=== PATIENT | female | born 1980 | race Caucasian/White ===

== ENCOUNTER 2017-12-31 13:56 | Emergency (ER) | payer OTHER ==
[2017-12-31] MEDS ORDERED: LORazepam 0.5 MG Tab PO ONE ×2 (13:57→16:06)
[2017-12-31 15:14] LABS: CHLORIDE,CL 102 mmol/L (101-111); SODIUM,NA 138 mmol/L (135-145)
[2017-12-31 15:15] LABS: ANION GAP 12.2
--- NOTE | 2017-12-31 16:10 | EDM.PDOC ---
Scribed by Margarette Stein 12/31/17 1609 for Everton Santacruz PA ED HPI GENERAL MEDICAL PROBLEM - General Chief Complaint: Chest Pain Stated Complaint: CHEST PAIN [phone] Time Seen by Provider: 12/31/17 15:01 Source of Information: Reports: Patient, RN, RN Notes Reviewed History Limitations: Reports: No Limitations - History of Present Illness INITIAL COMMENTS - FREE TEXT/NARRATIVE: Patient presents with intermittent chest "congestion"for the past 1 to 2 weeks. 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 The patient started her Sertraline about 1-1/2 week ago. The patient saw Silva Goins last week and told to take walks and keep taking Sertraline. Onset: Gradual Duration: Getting Worse Location: Reports: Chest Quality: Reports: Ache Severity: Moderate Improves with: Reports: None Worsens with: Reports: None Associated Symptoms: Reports: No Other Symptoms Middle Chest Pain Score (Numeric/FACES): 6 - Related Data Allergies Allergy/AdvReac Type Severity Reaction Status Date / Time azithromycin Allergy Cannot Verified 12/31/17 14:38 Remember bermuda grass Allergy Cannot Uncoded 10/16/16 14:35 Remember penicillin mold Allergy Cannot Uncoded 10/16/16 14:35 Remember Home Meds: Home Meds Drospirenone/Ethinyl Estradiol [Kaley 28] 1 tab PO DAILY 09/28/15 [History] FLUoxetine [PROzac] 20 mg PO DAILY 09/28/15 [History] Past Medical History HEENT History: Reports: None Cardiovascular History: Reports: None Respiratory History: Reports: None Gastrointestinal History: Reports: Irritable Bowel Syndrome Genitourinary History: Reports: None 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 Musculoskeletal History: Reports: Other (See Below) 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 Neurological History: Reports: None Psychiatric History: Reports: Anxiety, Depression Endocrine/Metabolic History: Reports: None Hematologic History: Reports: None Immunologic History: Reports: None Oncologic (Cancer) History: Reports: Cervix Dermatologic History: Reports: None - Infectious Disease History Infectious Disease History: Reports: Chicken Pox, Measles - Past Surgical History Head Surgeries/Procedures: Reports: None Female Surgical History: Reports: Cervical Conization Social & Family History - Family History Family Medical History: Noncontributory - Tobacco Use Smoking Status *Q: Former Smoker Years of Tobacco use: 6 Packs/Tins Daily: 0.5 Used Tobacco, but Quit: Yes Month/Year Tobacco Last Used: 2016 Second Hand Smoke Exposure: No - Caffeine Use Caffeine Use: Reports: Coffee - Alcohol Use Days Per Week of Alcohol Use: 2 Number of Drinks Per Day: 6 Total Drinks Per Week: 12 - Recreational Drug Use Recreational Drug Use: No - Living Situation & Occupation Living situation: Reports: Single, Alone Occupation: Employed ED ROS GENERAL - Review of Systems Review Of Systems: ROS reveals no pertinent complaints other than HPI. ED EXAM, GENERAL - Physical Exam Exam: See Below Exam Limited By: No Limitations General Appearance: Alert, WD/WN, No Apparent Distress Eye Exam: Bilateral Eye: Normal Inspection Nose: Normal Inspection, Normal Mucosa, No Blood Throat/Mouth: Normal Inspection, Normal Lips, Normal Teeth, Normal Gums, Normal Oropharynx, Normal Voice, No Airway Compromise Head: Atraumatic, Normocephalic Neck: Normal Inspection, Supple, Non-Tender, Full Range of Motion Respiratory/Chest: No Respiratory Distress, Lungs Clear, Normal Breath Sounds, No Accessory Muscle Use, Chest Non-Tender Cardiovascular: Normal Peripheral Pulses, Regular Rate, Rhythm, No Edema, No Gallop, No JVD, No Murmur, No Rub GI/Abdominal: Normal Bowel Sounds, Soft, Non-Tender, No Organomegaly, No Distention, No Abnormal Bruit, No Mass (Female) Exam: Deferred Rectal (Female) Exam: Deferred Back Exam: Normal Inspection, Full Range of Motion, NT Extremities: Normal Inspection, Normal Range of Motion, Non-Tender, Normal Capillary Refill, No Pedal Edema Neurological: Alert, Oriented, CN II-XII Intact, Normal Cognition, Normal Gait, Normal Reflexes, No Motor/Sensory Deficits Psychiatric: Anxious Skin Exam: Warm, Dry, Intact, Normal Color, No Rash Lymphatic: No Adenopathy Course - Vital Signs Last Recorded V/S: Last Vital Signs Temp 36.6 C 12/31/17 16:20 Pulse 67 12/31/17 18:24 Resp 18 12/31/17 18:24 BP 99/55 L 12/31/17 18:24 Pulse Ox 98 12/31/17 18:24 - Orders/Labs/Meds Orders: Active Orders 24 hr Category Date Time Status EKG Documentation Completion [RC] URGENT Care 12/31/17 14:19 Active DRUG SCREEN URINE BIORAD [URCHEM] Stat Lab 12/31/17 14:20 Ordered HCG QUALITATIVE,URINE [URCHEM] Stat Lab 12/31/17 14:20 Ordered UA W/MICROSCOPIC [URIN] Stat Lab 12/31/17 14:20 Ordered Labs: Laboratory Tests 12/31/17 12/31/17 12/31/17 Range/Units 14:20 14:20 14:20 WBC (5.0-10.0) 10^3/uL RBC (4.2-5.4) 10^6/uL Hgb (12.0-16.0) g/dL Hct (37.0-47.0) % MCV (80-100) fL MCH (27.0-34.0) pg MCHC (33.0-35.0) g/dL Plt Count (150-450) 10^3/uL Neut % (Auto) (42.2-75.2) % Lymph % (Auto) (20.5-50.1) % Hodgeman % (Auto) (2-8) % Eos % (Auto) (1.0-3.0) % Baso % (Auto) (0.0-1.0) % Sodium (135-145) mmol/L Potassium (3.6-5.0) mmol/L Chloride (101-111) mmol/L Carbon Dioxide (21.0-31.0) mmol/L Anion Gap BUN (7-18) mg/dL Creatinine (0.6-1.3) mg/dL Est Cr Clr Drug Dosing Estimated GFR (MDRD) BUN/Creatinine Ratio Glucose (74-105) mg/dL Calcium (8.4-10.2) mg/dl Total Bilirubin (0.2-1.0) mg/dL AST (10-42) IU/L ALT (10-60) IU/L Alkaline Phosphatase (42-121) IU/L Troponin I (0.00-0.02) ng/ml Total Protein (6.7-8.2) g/dl Albumin (3.2-5.5) g/dl Globulin Albumin/Globulin Ratio Urine Color Yellow (YELLOW) Urine Appearance Clear (CLEAR) Urine pH 6.0 (5.0-9.0) Ur Specific Mancos 1.015 (1.005-1.030) Urine Protein Negative (NEGATIVE) Urine Glucose (UA) Negative (NEGATIVE) Urine Ketones Negative (NEGATIVE) Urine Occult Blood Small H (NEGATIVE) Urine Nitrite Negative (NEGATIVE) Urine Bilirubin Negative (NEGATIVE) Urine Urobilinogen 0.2 (0.2-1.0) mg/dL Ur Leukocyte Esterase Negative (NEGATIVE) Urine RBC 0-5 /HPF Urine WBC 0-5 (0-5/HPF) /HPF Ur Epithelial Cells Rare /HPF Urine Bacteria Few (0-FEW/HPF) /HPF Urine HCG, Qual Negative Urine Opiates Screen Negative (NEGATIVE) Ur Oxycodone Screen Negative (NEGATIVE) Urine Methadone Screen Negative (NEGATIVE) Ur Barbiturates Screen Negative (NEGATIVE) U Tricyclic Antidepress Negative (NEGATIVE) Ur Phencyclidine Scrn Negative (NEGATIVE) Ur Amphetamine Screen Negative (NEGATIVE) U Methamphetamines Scrn Negative (NEGATIVE) Urine MDMA Screen Negative (NEGATIVE) U Benzodiazepines Scrn Negative (NEGATIVE) Urine Cocaine Screen Negative (NEGATIVE) U Marijuana (THC) Screen Negative (NEGATIVE) 12/31/17 12/31/17 12/31/17 Range/Units 14:30 14:30 18:02 WBC 6.8 (5.0-10.0) 10^3/uL RBC 4.11 L (4.2-5.4) 10^6/uL Hgb 12.7 (12.0-16.0) g/dL Hct 37.7 (37.0-47.0) % MCV 91.7 (80-100) fL MCH 30.9 (27.0-34.0) pg MCHC 33.7 (33.0-35.0) g/dL Plt Count 233 (150-450) 10^3/uL Neut % (Auto) 62.2 (42.2-75.2) % Lymph % (Auto) 29.4 (20.5-50.1) % Hodgeman % (Auto) 7.6 (2-8) % Eos % (Auto) 0.7 L (1.0-3.0) % Baso % (Auto) 0.1 (0.0-1.0) % Sodium 138 (135-145) mmol/L Potassium 3.2 L (3.6-5.0) mmol/L Chloride 102 (101-111) mmol/L Carbon Dioxide 27.0 (21.0-31.0) mmol/L Anion Gap 12.2 BUN 10 (7-18) mg/dL Creatinine 0.8 (0.6-1.3) mg/dL Est Cr Clr Drug Dosing TNP Estimated GFR (MDRD) > 60 BUN/Creatinine Ratio 12.50 Glucose 99 (74-105) mg/dL Calcium 9.7 (8.4-10.2) mg/dl Total Bilirubin 0.4 (0.2-1.0) mg/dL AST 27 (10-42) IU/L ALT 20 (10-60) IU/L Alkaline Phosphatase 44 (42-121) IU/L Troponin I < 0.02 < 0.02 (0.00-0.02) ng/ml Total Protein 7.3 (6.7-8.2) g/dl Albumin 4.0 (3.2-5.5) g/dl Globulin 3.3 Albumin/Globulin Ratio 1.21 Urine Color (YELLOW) Urine Appearance (CLEAR) Urine pH (5.0-9.0) Ur Specific Mancos (1.005-1.030) Urine Protein (NEGATIVE) Urine Glucose (UA) (NEGATIVE) Urine Ketones (NEGATIVE) Urine Occult Blood (NEGATIVE) Urine Nitrite (NEGATIVE) Urine Bilirubin (NEGATIVE) Urine Urobilinogen (0.2-1.0) mg/dL Ur Leukocyte Esterase (NEGATIVE) Urine RBC /HPF Urine WBC (0-5/HPF) /HPF Ur Epithelial Cells /HPF Urine Bacteria (0-FEW/HPF) /HPF Urine HCG, Qual Urine Opiates Screen (NEGATIVE) Ur Oxycodone Screen (NEGATIVE) Urine Methadone Screen (NEGATIVE) Ur Barbiturates Screen (NEGATIVE) U Tricyclic Antidepress (NEGATIVE) Ur Phencyclidine Scrn (NEGATIVE) Ur Amphetamine Screen (NEGATIVE) U Methamphetamines Scrn (NEGATIVE) Urine MDMA Screen (NEGATIVE) U Benzodiazepines Scrn (NEGATIVE) Urine Cocaine Screen (NEGATIVE) U Marijuana (THC) Screen (NEGATIVE) Meds: Medications Discontinued Medications Generic Name Dose Route Start Last Admin Trade Name Freq PRN Reason Stop Dose Admin Acetaminophen 650 mg 12/31/17 17:08 12/31/17 17:14 Tylenol PO 12/31/17 17:09 650 mg NOW ONE Administration Lorazepam 0.5 mg 12/31/17 16:06 12/31/17 16:12 Ativan PO 12/31/17 16:07 0.5 mg ONETIME ONE Administration - Re-Assessments/Exams Free Text/Narrative Re-Assessment/Exam: 12/31/17 16:08 The patient was advised of the examination, lab, EKG and x-ray results. The patient was kept on extended ED stay for a repeat troponin level at 1800. Ativan was given for anxiety prior to going on extended. Free Text/Narrative Re-Assessment/Exam: 12/31/17 19:02 Discussed the second lab results with the patient. The patient reports that she is feeling good at this time (no chest tightness or pain). Departure - Departure Time of Disposition: 19:03 Disposition: Home, Self-Care 01 Condition: Fair Clinical Impression: Anxiety, Nonspecific chest pain Instructions: Nonspecific Chest Pain, [id number], Generalized Anxiety Disorder, Adult Forms: ED Department Discharge Care Plan Goals: The patient was advised of the examination, lab, EKG and x-ray results during the visit. The patient was given an oral dose of Ativan while in the ED. The patient was discharged with Ativan (0.5 mg) #2 to take 1 by mouth every 6 hours as needed. The patient was also given a script for Ativan (0.5 mg) #10 to take 1 by mouth every 6 hours as needed. The patient was encouraged to follow-up with her primary care facility for continued evaluation and further management. If the patient has any additional symptoms, the patient should either return to the emergency department or visit her primary care facility. - My Orders Last 24 Hours: My Active Orders 12/31/17 14:19 EKG Documentation Completion [RC] URGENT 12/31/17 14:20 DRUG SCREEN URINE BIORAD [URCHEM] Stat HCG QUALITATIVE,URINE [URCHEM] Stat UA W/MICROSCOPIC [URIN] Stat - Assessment/Plan Last 24 Hours: My Active Orders 12/31/17 14:19 EKG Documentation Completion [RC] URGENT 12/31/17 14:20 DRUG SCREEN URINE BIORAD [URCHEM] Stat HCG QUALITATIVE,URINE [URCHEM] Stat UA W/MICROSCOPIC [URIN] Stat I have read and agree with the documentation that has been completed regarding this visit. By signing this record, I attest that the documentation was completed in my physical presence and is an accurate record of the encounter.
[2017-12-31] MEDS ORDERED: Acetaminophen 325 MG Tab PO ONE (17:08)
[2017-12-31 19:03] VITALS: BP 107/64
[2017-12-31] MEDS ORDERED: LORazepam 0.5 MG Tab ONE (19:04)
--- NOTE | 2018-02-02 09:29 | EKG ---
12/31/2017 - TOMAS IVY - EKG is sinus rhythm with a rate of 81. Normal WA interval. Normal axis. There are nonspecific ST-T wave changes in the inferolateral leads. EKG otherwise within normal limits. There are no signs of acute myocardial injury. [facility] /[id number]
== END 2017-12-31 19:13 | disposition home or self-care (01) ==
LOC: DL.ED 13:56
DX: R07.9 Chest pain, unspecified (principal); F41.9 Anxiety disorder, unspecified; Z79.899 Other long term (current) drug therapy; Z87.891 Personal history of nicotine dependence; Z88.1 Allergy status to other antibiotic agents; Z88.0 Allergy status to penicillin; Z91.09 Other allergy status, other than to drugs and biological substances
CPT/HCPCS: 36415; 71046; 80053; 80305; 81001; 81025; 84484; 85025; 93005; 93010; 99285; A9270

== ENCOUNTER 2018-01-12 12:10 | Emergency (ER) | payer OTHER ==
[2018-01-12 12:18] VITALS: BP 138/93
--- NOTE | 2018-01-12 12:21 | EDM.PDOC ---
ED HPI GENERAL MEDICAL PROBLEM - General Chief Complaint: Skin Complaint Stated Complaint: CUT FINGER [phone] Time Seen by Provider: 01/12/18 12:21 Source of Information: Reports: Patient, RN, RN Notes Reviewed History Limitations: Reports: No Limitations - History of Present Illness INITIAL COMMENTS - FREE TEXT/NARRATIVE: Pt presents to the ER with c/o pain and cut to right ring finger. Pt states she was closing a large, heavy door when she got her finger caught in the door. Pt states she believes she pulled on her hand to free her finger. Pt states she is up to date on her vaccinations as she is a [employer] employee. Pt rates the pain a 05/28. Onset: Today, Sudden Right 4-Ring finger Pain Score (Numeric/FACES): 6 - Related Data Allergies Allergy/AdvReac Type Severity Reaction Status Date / Time azithromycin Allergy Cannot Verified 01/12/18 12:21 Remember bermuda grass Allergy Cannot Uncoded 01/12/18 12:21 Remember penicillin mold Allergy Cannot Uncoded 01/12/18 12:21 Remember Home Meds: Home Meds FLUoxetine [PROzac] 20 mg PO DAILY 09/28/15 [History] Past Medical History HEENT History: Reports: None Cardiovascular History: Reports: None Respiratory History: Reports: None Gastrointestinal History: Reports: Irritable Bowel Syndrome Genitourinary History: Reports: None 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 Musculoskeletal History: Reports: Other (See Below) 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 Neurological History: Reports: None Psychiatric History: Reports: Anxiety, Depression Endocrine/Metabolic History: Reports: None Hematologic History: Reports: None Immunologic History: Reports: None Oncologic (Cancer) History: Reports: Cervix Dermatologic History: Reports: None - Infectious Disease History Infectious Disease History: Reports: Chicken Pox, Measles - Past Surgical History Head Surgeries/Procedures: Reports: None Female Surgical History: Reports: Cervical Conization Social & Family History - Family History Family Medical History: Noncontributory - Tobacco Use Smoking Status *Q: Former Smoker Years of Tobacco use: 6 Packs/Tins Daily: 0.5 Used Tobacco, but Quit: Yes Month/Year Tobacco Last Used: 2016 Second Hand Smoke Exposure: No - Caffeine Use Caffeine Use: Reports: Coffee - Alcohol Use Days Per Week of Alcohol Use: 2 Number of Drinks Per Day: 6 Total Drinks Per Week: 12 - Recreational Drug Use Recreational Drug Use: No - Living Situation & Occupation Living situation: Reports: Single, Alone Occupation: Employed ED ROS GENERAL - Review of Systems Review Of Systems: ROS reveals no pertinent complaints other than HPI. ED EXAM, SKIN/RASH Exam: See Below Exam Limited By: No Limitations General Appearance: Alert, WD/WN, Moderate Distress Eye Exam: Bilateral Eye: EOMI, Normal Inspection Ears: Normal External Exam, Hearing Grossly Normal Nose: Normal Inspection Throat/Mouth: Normal Inspection, Normal Voice, No Airway Compromise Head: Atraumatic, Normocephalic Neck: Normal Inspection Respiratory/Chest: No Respiratory Distress, Lungs Clear, Normal Breath Sounds Cardiovascular: Normal Peripheral Pulses, Regular Rate, Rhythm Peripheral Pulses: 2+: Radial (L), Radial (R) GI/Abdominal: Normal Bowel Sounds, Soft, Non-Tender (Female) Exam: Deferred Rectal (Female) Exam: Deferred Back Exam: Normal Inspection, Full Range of Motion Extremities: Normal Inspection, Normal Range of Motion, Non-Tender, No Pedal Edema, Normal Capillary Refill, Other (right 4th finger lacerated laterally across the nail and through the nailbed. Tip of finger is holding on by minimal tissue. ) Neurological: Alert, Oriented, CN II-XII Intact, Normal Cognition, Normal Gait, Normal Reflexes, No Motor/Sensory Deficits Psychiatric: Normal Affect, Normal Mood Skin: Warm, Dry Location, Skin: Upper Extremity, Right Lymphatic: No Adenopathy ED SKIN PROCEDURES - Laceration/Wound Repair Right Distal Finger Lac/Wound length In cm: 2 Appearance: Muscle, Linear Distal NVT: Other (severed approximately 70% of the way through the finger) Anesthetic Type: Local Local Anesthesia - Lidocaine (Xylocaine): 1% Plain Local Anesthetic Volume: Other (7cc) Skin Prep: Chlorhexidine (Hibiciens) Exploration/Debridement/Repair: Wound Explored, In a Bloodless Field, Minimal Debridement, No Foreign Material Found, Wound Margins Revised Closed with: Sutures Suture Size: 4-0 # of Sutures: 4 Suture Type: Nylon, Interrupted Drain Placement: No Sterile Dressing Applied: Provider Tetanus Status Addressed: Yes Complications: No Progress/Comments: After suturing the lateral part of the finger, the fingernail was approximated and glued. Wrapped with telfa and stabilized with a splint Course - Vital Signs Last Recorded V/S: Last Vital Signs Temp 97.8 F 04/27/18 12:16 Pulse 94 01/12/18 12:16 Resp 15 01/12/18 12:16 BP 138/93 H 01/12/18 12:16 Pulse Ox 100 01/12/18 12:16 - Orders/Labs/Meds Meds: Medications Discontinued Medications Generic Name Dose Route Start Last Admin Trade Name Malena PRN Reason Stop Dose Admin Lidocaine HCl 30 ml 01/12/18 13:18 01/12/18 13:23 Xylocaine-Mpf 1% INJECT 01/12/18 13:19 30 ml ONETIME ONE Administration Morphine Sulfate 2 mg 01/12/18 12:56 01/12/18 13:02 Morphine IM 01/12/18 12:57 2 mg ONETIME ONE Administration - Radiology Interpretation Free Text/Narrative:: Nondisplaced comminuted fracture terminal tuft and distal end of the distal phalanx right ring finger. Surrounding soft tissue swelling but reasonable apposition and near anatomic alignment of the subungual bony fragments. No foreign bodies or inflammatory periostitis. No other fracture or dislocation approximately in the adjacent middle/small fingers are intact. Departure - Departure Time of Disposition: 14:01 Disposition: Home, Self-Care 01 Condition: Fair Clinical Impression: Avulsion fracture Avulsion, finger tip Qualifiers: Encounter type: initial encounter Qualified Code(s): S61.209A - Unspecified open wound of unspecified finger without damage to nail, initial encounter - Discharge Information Instructions: Laceration Care, Adult, [id number], Stitches, Chuck, or Adhesive Wound Closure, [id number] Forms: ED Department Discharge Additional Instructions: Follow up with primary care for referral to ortho. Keep area clean and dry Get Non-adhesive dressing gauze for over the finger for when changing the dressing
--- NOTE | 2018-01-12 12:49 | CR ---
Clinical history: 37-year-old female injury right index (fourth) finger. Interpretation: Abnormal. Nondisplaced comminuted fracture terminal tuft and distal end of the distal phalanx right ring finger . Surrounding soft tissue swelling but reasonable apposition and near anatomic alignment of the subungu al bony fragments. No foreign bodies or inflammatory periostitis. No other fracture or dislocation approximately in the adjacent middle/small fingers are intact.
[2018-01-12] MEDS ORDERED: Morphine 2 MG/ML Syringe IM ONE (12:56)
[2018-01-12] MEDS ORDERED: Lidocaine 1% 30 ML SDV INJECT ONE (13:18)
== END 2018-01-12 14:08 | disposition home or self-care (01) ==
LOC: DL.ED 12:10
DX: S62.634A Displaced fracture of distal phalanx of right ring finger, initial encounter for closed fracture (principal); S61.214A Laceration without foreign body of right ring finger without damage to nail, initial encounter; Z88.1 Allergy status to other antibiotic agents; Z91.09 Other allergy status, other than to drugs and biological substances; Z88.0 Allergy status to penicillin; Z87.891 Personal history of nicotine dependence; W23.0XXA Caught, crushed, jammed, or pinched between moving objects, initial encounter
CPT/HCPCS: 12001; 73140; 96372; 99283; J2270; 12031

== ENCOUNTER 2018-12-27 05:35 | Inpatient (IN) | payer OTHER ==
[2018-12-27] MEDS ORDERED: hydrOXYzine HCl 25 MG Tab PO PRN (06:15)
[2018-12-27] MEDS ORDERED: Lactated Ringers 1,000 ML IV ONE (06:15)
[2018-12-27] MEDS ORDERED: fentaNYL 100 MCG/2 ML SDV IVPUSH ONE (07:48)
[2018-12-27] MEDS ORDERED: fentaNYL 100 MCG/2 ML SDV IVPUSH PRN (08:31)
[2018-12-27] MEDS ORDERED: Acetaminophen 325 MG Tab PO PRN (08:31)
[2018-12-27] MEDS ORDERED: Sodium Chloride 0.9% 10 ML Syringe FLUSH PRN (08:31)
--- NOTE | 2018-12-27 08:31 | PCM.LDHP ---
L&D History of Present Illness - General Date of Service: 12/27/18 Admit Problem/Dx: Admission Diagnosis/Problem Admission Diagnosis/Problem Source of Information: Patient History Limitations: Reports: No Limitations - History of Present Illness Introduction:: 38-year-old at 39w6d presents with contractions that started around midnight. They were originally 7-8 minutes apart but over the past hour or so, they have been 3-4 minutes apart. She has had some mucus discharge as well. Baby has been active. No leaking of fluid. No new headaches or vision changes. Initial blood pressures were in the 140s/90s. Patient was observed for 2 hours and continued to have regular contractions so the decision was made to admit for management of active labor Pain Score: 8 - Related Data Allergies/Adverse Reactions: Allergies Allergy/AdvReac Type Severity Reaction Status Date / Time azithromycin Allergy Cannot Verified 12/27/18 05:38 Remember bermuda grass Allergy Cannot Uncoded 12/27/18 05:38 Remember penicillin mold Allergy Cannot Uncoded 12/27/18 05:38 Remember Home Medications: Home Meds FLUoxetine [PROzac] 20 mg PO DAILY 09/28/15 [History] Ferrous Sulfate 325 mg PO DAILY 12/18/18 [History] PNV95/Ferrous Fumarate/FA [Prenavite Tablet] 1 each PO DAILY 12/18/18 [History] Ferrous Sulfate [Iron] 1 tab PO DAILY 12/27/18 [History] Past Medical History - Past Health History Medical/Surgical History: Denies Medical/Surgical History HEENT History: Reports: None Cardiovascular History: Reports: None Respiratory History: Reports: None Gastrointestinal History: Reports: Irritable Bowel Syndrome Genitourinary History: Reports: None 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 Musculoskeletal History: Reports: Other (See Below) 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 Neurological History: Reports: None Psychiatric History: Reports: Anxiety, Depression Endocrine/Metabolic History: Reports: None Hematologic History: Reports: None Immunologic History: Reports: None Oncologic (Cancer) History: Reports: Cervix Dermatologic History: Reports: None - Infectious Disease History Infectious Disease History: Reports: Chicken Pox, Measles - Past Surgical History Head Surgeries/Procedures: Reports: None Female Surgical History: Reports: Cervical Conization Social & Family History - Family History Family Medical History: Noncontributory - Caffeine Use Caffeine Use: Reports: Coffee - Living Situation & Occupation Living situation: Reports: Single, Alone Occupation: Employed H&P Review of Systems - Review of Systems: Review Of Systems: See Below General: Reports: No Symptoms HEENT: Reports: No Symptoms Pulmonary: Reports: No Symptoms Cardiovascular: Reports: No Symptoms Musculoskeletal: Reports: Back Pain Skin: Reports: No Symptoms Neurological: Reports: No Symptoms L&D Exam - Exam Exam: See Below - Vital Signs Vital Signs: Last Vital Signs Temp 36.2 C 12/27/18 05:42 Pulse 68 12/27/18 06:52 Resp 18 12/27/18 06:52 BP 139/82 12/27/18 06:52 Pulse Ox Weight: 113.398 kg - OB Specific Contraction Duration (sec): 60-80 Contraction Frequency (min): irregular Contraction Intensity: Mild to Moderate Movement: Active Heart Tones: Present Heart Tones per Min: 135 Heart Rate (FHR) Variability: Moderate (6-25 bmp) Presentation: Vertex - Ponce Score Ponce Score Cervix Position: Anterior Ponce Score Consistency: Soft Ponce Score Effacement: >80% Ponce Score Dilation: Closed Ponce Score 's Station: -2 Ponce Score Total: 8 - Exam General: Alert, Oriented Lungs: Clear to Auscultation, Normal Respiratory Effort Cardiovascular: Regular Rate, Regular Rhythm. No: Systolic Murmur, Diastolic Murmur Genitourinary: Normal external exam Extremities: Pedal Edema (Trace to lower extremities bilaterally) Skin: Warm, Dry, Intact Psychiatric: Alert - Patient Data Result Diagrams: 12/27/18 08:51 - Problem List (1) care in third trimester SNOMED Code(s): 104660756, [id number], [id number], [id number], [id number] ICD Code: Z34.93 - ENCNTR FOR SUPRVSN OF NORMAL PREG, UNSP, THIRD TRIMESTER Status: Acute Current Visit: Yes Problem List Initiated/Reviewed/Updated: Yes Orders Last 24hrs: Active Orders 24 hr Category Date Time Status OB Check [OM.PC] Click To Edit Care 12/27/18 05:55 Ordered PROTEIN/CREATININE RATIO,URINE [URCHEM] Routine Lab 12/27/18 07:30 Received hydrOXYzine HCl [Atarax] Med 12/27/18 06:15 Active 50 mg PO ONETIME PRN Medication Orders Hydroxyzine HCl (Atarax) 50 mg PO ONETIME PRN PRN Reason: Anxiety Last Admin: 12/27/18 06:37 Dose: 50 mg Assessment/Plan Comment:: 1. Initiate routine intrapartum orders 2. Expectant management. Augmentation with AROM and pitocin if needed. 3. Patient does desire an intrathecal later in for pain control 4. Anticipate Latisha Carroll MD
[2018-12-27] MEDS ORDERED: Nalbuphine 10 MG/1 ML Vial IV PRN (08:34)
[2018-12-27] MEDS ORDERED: Oxytocin/Normal Saline 30 UNIT/500 ML BAG IV SCH (09:00)
[2018-12-27] MEDS ORDERED: Misoprostol 400 MCG (4 X 100 MCG TAB) RECTAL PRN (09:00)
[2018-12-27] MEDS ORDERED: Methylergonovine 0.2 MG/1 ML Amp IM PRN (09:00)
[2018-12-27] MEDS ORDERED: Ondansetron 4 MG/2 ML SDV IV PRN (09:00)
[2018-12-27] MEDS ORDERED: Lactated Ringers 500 ML IV ONE (09:00)
[2018-12-27] MEDS ORDERED: Lidocaine 1% 30 ML SDV INJECT PRN (09:00)
[2018-12-27] MEDS ORDERED: Carboprost Tromethamine 250 MCG/1 ML Amp IM PRN (09:00)
[2018-12-27] MEDS ORDERED: Tranexamic Acid 1,000 MG in Sodium Chloride 0.9% 100 ML IV PRN (09:00)
[2018-12-27] MEDS: Nalbuphine 10 MG/1 ML Vial IM PRN ×2 (09:11→12:52)
[2018-12-27] MEDS: Lactated Ringers 1,000 ML IV SCH ×3 (11:45→19:19)
--- NOTE | 2018-12-27 17:42 | US ---
Clinical history: 38-year-old OB patient "in labor" with vaginal bleeding and pain (estimated date of delivery is 28 December 2018). Interpretation: Enlarged uterus with a single live ( heart rate 133 bpm) intrauterine gestation, longitudinal lie and cephalic presentation. Healthy appearing mature placenta located anteriorly, upper corpus of the uterus shows... *no sign of retroplacental bleed or hematoma i.e. no abruption. (Small central cyst or placental kohli)
[2018-12-27] MEDS ORDERED: EPINEPHrine 1 MG/ML SDV ONE (17:49)
[2018-12-27] MEDS ORDERED: fentaNYL 100 MCG/2 ML SDV ONE (17:49)
--- NOTE | 2018-12-27 18:32 | PCM.PRNOTE ---
- Free Text/Narrative Note: Requested to provide analgesia to full term patient in severe pain. Upon entering the room, patient is sitting on edge of bed complaining of severe abdominal/pelvic pain and discomfort. Procedure was discussed with patient including adverse outcomes and expectations. Pt consented to analgesia, SAB/ IT. Pt placed into a proper sitting position. Landmarks for SAB/IT were identified and marked. Hands were washed and appropriate PPE was applied. Back was prepped with betadine x3. A sterile, transparent, fenestrated drape was applied. Excess betadine was removed. Using 3 mL of a 1% lidocaine solution , a skin wheel was placed at the L2/L3 interspace. A 24 ga (4 inch) Pencan spinal needle was inserted until positive for CSF. Negative for heme or paresthesias. Injected fentanyl 30 mcg, sufentanil 25 mcg, and 9.75 mg of a 0.75% bupivacaine solution with an epi wash. Pt was placed left lateral position for approximately 20 minutes. There were zero complications or adverse outcomes. Will continue to monitor. Procedure Date & Time: 12/27/18 [id number]
--- NOTE | 2018-12-27 23:14 | PCM.DEL ---
L & D Note - General Info Date of Service: 12/27/18 Mother's Due Date: 12/28/18 - Delivery Note Labor: Spontaneous, Augmented by ARM, Augmented by Oxytocin Delivery Outcome: Livebirth Delivery Method: Spontaneous Vaginal Delivery-Single Presentation: Left Occiput Anterior (ANTONIO) Nuchal Cord: Present, Reduced Anesthesia Type: Intrathecal, Local Anesthetic: Lidocaine (Xylocaine) 1% Plain Local Anesthetic Volume: Other (8) Amniotic Fluid Description: Clear Episiotomy Type: None Laceration: 1st Degree, Labial (Right) Suture type: Vicryl Suture size: 4-0 Placenta: Intact, Spontaneous Cord: 3 Vessels Estimated Blood Loss: 225 : Bulb Syringe, Stimulated, Warmed Provider: Latisha Carroll Score 1 min: 9 Score 5 min: 7 Delivery Comments (Free Text/Narrative):: 38-year-old at 36w6d presented to L&D in early active labor. Patient contracted every 3-4 minutes for about 4 hours with minimal cervical change. Therefore, pitocin augmentation was initiate. Around, 1500, there were concerns that patient was experiencing pain out of proportion. Therefore, an ultrasound was performed. Anterior placenta was noted to be normal looking without signs of abruption. Baby was noted to be in OP position. At approximately 1600, AROM was performed for moderate amount of meconium stained fluid. Patient received an intrathecal for pain control. Patient progressed to complete dilation. She then pushed for 1 hour 15 minutes before delivering a viable female infant weighing 8 pounds, 7 ounces with Apgars of 9 and 7 at 1 and 5 minutes respectively. A loose nuchal cord was reduced after delivery. Baby was placed on mother's stomach. Cord was clamped x2 and cut after pulsations decreased. Cord blood was collected. A small right labial laceration was repaired with a running suture using 4-0 Vicryl. The placenta delivered about 20 minutes after delivery of the baby. Pitocin was started. Uterus was noted to be firm, and bleeding was appropriate. Patient tolerated the procedure well, and there were no immediately complications. - General Info Date of Service: 12/27/18 - Patient Data Vitals - Most Recent: Last Vital Signs Temp 36.9 C 12/27/18 19:00 Pulse 79 12/27/18 19:45 Resp 18 12/27/18 19:45 BP 133/68 12/27/18 19:45 Pulse Ox Weight - Most Recent: 113.398 kg I&O - Last 24 Hours: Intake & Output 12/27/18 12/27/18 12/28/18 14:59 22:59 06:59 Intake Total 3000 Balance 3000 Lab Results Last 24 Hours: Laboratory Results - last 24 hr 12/27/18 12/27/18 Range/Units 07:30 08:51 WBC 9.8 (5.0-10.0) 10^3/uL RBC 3.92 L (4.2-5.4) 10^6/uL Hgb 12.1 (12.0-16.0) g/dL Hct 35.9 L (37.0-47.0) % MCV 91.6 (80-100) fL MCH 30.9 (27.0-34.0) pg MCHC 33.7 (33.0-35.0) g/dL Plt Count 153 D (150-450) 10^3/uL Ur Random Creatinine 216 mg/dL U Random Total Protein 30 H (0.00-9.9) mg/dL Protein/Creatinin Ratio 0.13 Med Orders - Current: Current Medications Acetaminophen (Tylenol) 650 mg PO Q4HR PRN PRN Reason: Pain (Mild 1-3) and fever Carboprost Tromethamine (Hemabate Ds) 250 mcg IM ASDIRECTED PRN PRN Reason: HEMORRHAGE Hydroxyzine HCl (Atarax) 50 mg PO ONETIME PRN PRN Reason: Anxiety Last Admin: 12/27/18 06:37 Dose: 50 mg Oxytocin/Sodium Chloride (Pitocin In Ns 30 Unit/500 Ml) 30 unit in 500 mls @ 2 mls/hr IV TITRATE REJI; Protocol Last Titration: 12/27/18 22:36 Dose: 500 munits/min, 500 mls/hr Tranexamic Acid 1,000 mg/ (Sodium Chloride) 110 mls @ 660 mls/hr IV ONETIME PRN PRN Reason: Bleeding Methylergonovine Maleate (Methergine) 0.2 mg IM ASDIRECTED PRN PRN Reason: Hemorrhage Misoprostol (Cytotec) 800 mcg RECTAL ASDIRECTED PRN PRN Reason: Hemorrhage Ondansetron HCl (Zofran) 4 mg IV Q4HR PRN PRN Reason: Nausea/Vomiting Sodium Chloride (Saline Flush) 10 ml FLUSH ASDIRECTED PRN PRN Reason: Keep Vein Open Discontinued Medications Epinephrine HCl (Adrenalin) Confirm Administered Dose 1 mg .ROUTE .STK-MED ONE Stop: 12/27/18 17:50 Last Admin: 12/27/18 19:13 Dose: Not Given Fentanyl (Sublimaze) 50 mcg IVPUSH ONETIME ONE Stop: 12/27/18 07:49 Last Admin: 12/27/18 08:04 Dose: 50 mcg Fentanyl (Sublimaze) 50 mcg IVPUSH Q1H PRN PRN Reason: Pain (moderate 4-6) Last Admin: 12/27/18 15:41 Dose: 50 mcg Fentanyl (Sublimaze) Confirm Administered Dose 100 mcg .ROUTE .STK-MED ONE Stop: 12/27/18 17:50 Last Admin: 12/27/18 19:13 Dose: Not Given Lactated Ringer's (Ringers, Lactated) 1,000 mls @ 999 mls/hr IV .BOLUS ONE Stop: 12/27/18 07:15 Last Admin: 12/27/18 06:25 Dose: 999 mls/hr Lactated Ringer's (Ringers, Lactated) 500 mls @ 999 mls/hr IV .BOLUS ONE Stop: 12/27/18 09:30 Lactated Ringer's (Ringers, Lactated) 1,000 mls @ 125 mls/hr IV ASDIRECTED REJI Last Admin: 12/27/18 19:19 Dose: 125 mls/hr Lidocaine HCl (Xylocaine-Mpf 1%) 30 ml INJECT ASDIRECTED PRN PRN Reason: Perineal Repair Last Admin: 12/27/18 22:28 Dose: 30 ml Nalbuphine HCl (Nubain) 20 mg IM Q3H PRN PRN Reason: Pain Last Admin: 12/27/18 12:52 Dose: 20 mg Sufentanil Citrate (Sufenta) Confirm Administered Dose 50 mcg .ROUTE .STK-MED ONE Stop: 12/27/18 17:50 Last Admin: 12/27/18 19:14 Dose: Not Given - Problem List & Annotations (1) care in third trimester SNOMED Code(s): 634708478, 19344127, 22206462, 806690416, 943637146 Code(s): Z34.93 - ENCNTR FOR SUPRVSN OF NORMAL PREG, UNSP, THIRD TRIMESTER Status: Acute Current Visit: Yes (2) (normal spontaneous vaginal delivery) SNOMED Code(s): 57084149 Code(s): O80 - ENCOUNTER FOR FULL-TERM UNCOMPLICATED DELIVERY Status: Acute Current Visit: Yes (3) Obstetric labial laceration, delivered, current hospitalization SNOMED Code(s): 154061775, 178034263, 820423329 Code(s): O70.0 - FIRST DEGREE PERINEAL LACERATION DURING DELIVERY Status: Acute Current Visit: Yes - Problem List Review Problem List Initiated/Reviewed/Updated: Yes - My Orders Last 24 Hours: My Active Orders 12/27/18 05:55 OB Check [OM.PC] Click To Edit 12/27/18 06:15 hydrOXYzine HCl [Atarax] 50 mg PO ONETIME PRN 12/27/18 08:31 Patient Status [ADT] Routine Heart Tones [RC] PER UNIT ROUTINE Notify Provider Vital Signs OB [RC] ASDIRECTED Up ad [place] [RC] ASDIRECTED Vital Signs [RC] PER UNIT ROUTINE Acetaminophen [Tylenol] 650 mg PO Q4HR PRN Sodium Chloride 0.9% [Saline Flush] 10 ml FLUSH ASDIRECTED PRN Saline Lock Insert [OM.PC] Routine Resuscitation Status Routine 12/27/18 09:00 Carboprost Tromethamine [Hemabate DS] 250 mcg IM ASDIRECTED PRN Methylergonovine [Methergine] 0.2 mg IM ASDIRECTED PRN Ondansetron [Zofran] 4 mg IV Q4HR PRN Oxytocin/Normal Saline [Pitocin in NS 30 UNIT/500 ML] 30 unit in 500 ml IV TITRATE Tranexamic Acid [Cyklokapron] 1,000 mg Sodium Chloride 0.9% [Normal Saline] 100 ml IV ONETIME miSOPROStol [Cytotec] 800 mcg RECTAL ASDIRECTED PRN 12/27/18 Lunch Regular Diet [DIET] - Assessment Assessment:: 38-year-old now status post at 36w6d - Plan Plan:: 1. Initiate routine orders 2. Mother plans to breastfeed 3. Anticipate discharge 12/29/18 Latisha Carroll MD
[2018-12-28] MEDS ORDERED: Ibuprofen 800 MG Tab PO PRN (02:00)
[2018-12-28] MEDS ORDERED: Acetaminophen 325 MG Tab PO PRN (07:22)
[2018-12-28] MEDS ORDERED: Tranexamic Acid 1,000 MG in Sodium Chloride 0.9% 100 ML IV PRN (07:22)
[2018-12-28] MEDS ORDERED: Simethicone 80 MG Tab.Chew PO PRN (07:22)
[2018-12-28] MEDS ORDERED: Zolpidem 5 MG Tab PO PRN (07:22)
[2018-12-28] MEDS ORDERED: Oxytocin 10 Units/1 ML SDV IM PRN (07:22)
[2018-12-28] MEDS ORDERED: Sodium Chloride 0.9% 10 ML Syringe FLUSH PRN (07:22)
[2018-12-28] MEDS ORDERED: Misoprostol 400 MCG (4 X 100 MCG TAB) RECTAL PRN (07:22)
[2018-12-28] MEDS ORDERED: Carboprost Tromethamine 250 MCG/1 ML Amp IM PRN (07:22)
[2018-12-28] MEDS ORDERED: Benzocaine/Menthol 20%-0.5% Spray 56 GM Canister TOP PRN (07:22)
[2018-12-28] MEDS: Prenatal Multivitamin with Calcium/Folic Acid/Iron Tab PO SCH (08:50)
[2018-12-28] MEDS: Docusate Sodium 100 MG Cap PO PRN (08:50)
[2018-12-28] MEDS ORDERED: EPINEPHrine 1 MG/ML SDV IV ONE (13:17)
[2018-12-28] MEDS ORDERED: fentaNYL 100 MCG/2 ML SDV ITHECAL ONE (13:17)
[2018-12-28] MEDS ORDERED: Lidocaine 2% 20 ML MDV ONE (13:17)
--- NOTE | 2018-12-28 14:31 | PN ---
DATE: 12/28/2018 SUBJECTIVE: The patient is a 38-year-old, 1, para 0, who presented in labor at 39 weeks and 6 days' gestation by ultrasound and delivered via spontaneous vaginal delivery of a term female on 12/27/2018 at 2014 hours. Overnight, the patient has done well. She reports being stiff and tender. She reports that she is ambulating well, tolerating general diet, and voiding appropriately. She is also passing flatus. She does note [id number] bleeding, but minimal cramping. She also reports that her left hand is still swollen due to an infiltrated IV, but this is resolving. The patient has no other concerns at this time. The patient is . OBJECTIVE: Vital Signs: Temp 98.1, HR 82 bpm, BP 123/83, RR 16 breaths per minute, and O2 saturation 97% on room air. General: Lying in bed, in no acute distress. HEENT: Grossly normal. Pulmonary: Lungs are clear to auscultation bilaterally. Cardiovascular: Regular rate and rhythm. No murmurs noted. Abdomen: Soft, minimally tender. Normoactive bowel sounds. Uterine fundus measured 4 cm below umbilicus. Firm uterus noted. Extremities: Minimal edema noted in lower extremities bilaterally. No tenderness to palpation of calves bilaterally. Neurologic: Grossly normal. ASSESSMENT: The patient is a 38-year-old, 1, para 0, now para 1, who presented in labor and delivered via spontaneous vaginal delivery of a term female . PLAN: 1. Routine cares. 2. . The patient was seen and evaluated today by myself and Dr. Latisha Carroll. Assessment and plan are under advisement of Dr. Carroll. -Fanny Brown, -III [facility] /[id number] MTDBecca
[2018-12-28] MEDS: Ibuprofen 800 MG Tab PO PRN ×2 (14:42→21:01)
[2018-12-29 08:15] VITALS: BP 124/80
[2018-12-29] MEDS: Prenatal Multivitamin with Calcium/Folic Acid/Iron Tab PO SCH (08:48)
[2018-12-29] MEDS: Docusate Sodium 100 MG Cap PO PRN (08:48)
[2018-12-29] MEDS: Ibuprofen 800 MG Tab PO PRN (08:48)
--- NOTE | 2018-12-29 09:57 | PCM.PNPP ---
- General Info Date of Service: 12/29/18 (PPD # 2 S/P ) Functional Status: Reports: Pain Controlled, Tolerating Diet, Ambulating, Urinating - Review of Systems General: Reports: No Symptoms HEENT: Reports: No Symptoms Pulmonary: Reports: No Symptoms Cardiovascular: Reports: No Symptoms Gastrointestinal: Reports: No Symptoms Genitourinary: Reports: No Symptoms Musculoskeletal: Reports: No Symptoms Skin: Reports: No Symptoms Neurological: Reports: No Symptoms Psychiatric: Reports: No Symptoms - General Info Date of Service: 12/29/18 (PPD # 2 S/P ) - Patient Data Vital Signs - Most Recent: Last Vital Signs Temp 98.7 F 12/29/18 08:15 Pulse 86 12/29/18 08:15 Resp 16 12/29/18 08:15 BP 124/80 12/29/18 08:15 Pulse Ox 97 12/29/18 08:15 Weight - Most Recent: 250 lb I&O - Last 24 Hours: Intake & Output 12/28/18 12/29/18 12/29/18 22:59 06:59 14:59 Intake Total 520 Balance 520 Lab Results - Last 24 Hours: Laboratory Results - last 24 hr 12/29/18 Range/Units 06:25 WBC 11.3 H (5.0-10.0) 10^3/uL RBC 3.38 L (4.2-5.4) 10^6/uL Hgb 10.5 L D (12.0-16.0) g/dL Hct 32.0 L (37.0-47.0) % MCV 94.7 D (80-100) fL MCH 31.1 (27.0-34.0) pg MCHC 32.8 L (33.0-35.0) g/dL Plt Count 144 L (150-450) 10^3/uL Med Orders - Current: Current Medications Acetaminophen (Tylenol) 650 mg PO Q6H PRN PRN Reason: mild pain or fever Last Admin: 12/28/18 08:49 Dose: 650 mg Benzocaine/Menthol (Dermoplast Pain Relief [place]) 0 gm TOP Q4H PRN PRN Reason: Perineal comfort measures Last Admin: 12/28/18 08:51 Dose: 1 spray Carboprost Tromethamine (Hemabate Ds) 250 mcg IM ASDIRECTED PRN PRN Reason: Excessive vaginal bleeding Docusate Sodium (Colace) 100 mg PO BID PRN PRN Reason: Constipation Last Admin: 12/29/18 08:48 Dose: 100 mg Hydroxyzine HCl (Atarax) 50 mg PO ONETIME PRN PRN Reason: Anxiety Last Admin: 12/27/18 06:37 Dose: 50 mg Oxytocin/Sodium Chloride (Pitocin In Ns 30 Unit/500 Ml) 30 unit in 500 mls @ 2 mls/hr IV TITRATE REJI; Protocol Last Titration: 12/28/18 01:15 Dose: Infused Tranexamic Acid 1,000 mg/ (Sodium Chloride) 110 mls @ 660 mls/hr IV ONETIME PRN PRN Reason: Bleeding Ibuprofen (Motrin) 800 mg PO Q8H PRN PRN Reason: Mild Pain or Fever Last Admin: 12/29/18 08:48 Dose: 800 mg Methylergonovine Maleate (Methergine) 0.2 mg IM ASDIRECTED PRN PRN Reason: Hemorrhage Misoprostol (Cytotec) 800 mcg RECTAL ONETIME PRN PRN Reason: Hemorrhage Ondansetron HCl (Zofran) 4 mg IV Q4HR PRN PRN Reason: Nausea/Vomiting Oxytocin (Pitocin) 10 unit IM ONETIME PRN PRN Reason: Bleeding Prenat Multivit/Arley/Iron/Folic Ac ( Plus Iron) 1 each PO DAILY [facility] Last Admin: 12/29/18 08:48 Dose: 1 each Simethicone (Simethicone) 80 mg PO Q4H PRN PRN Reason: Gas Sodium Chloride (Saline Flush) 10 ml FLUSH ASDIRECTED PRN PRN Reason: Keep Vein Open Zolpidem Tartrate (Ambien) 5 mg PO BEDTIME PRN PRN Reason: Insomnia Discontinued Medications Acetaminophen (Tylenol) 650 mg PO Q4HR PRN PRN Reason: Pain (Mild 1-3) and fever Carboprost Tromethamine (Hemabate Ds) 250 mcg IM ASDIRECTED PRN PRN Reason: HEMORRHAGE Epinephrine HCl (Adrenalin) Confirm Administered Dose 1 mg .ROUTE .STK-MED ONE Stop: 12/27/18 17:50 Last Admin: 12/27/18 19:13 Dose: Not Given Epinephrine HCl (Adrenalin) 0.1 mg IV .STK-MED ONE Stop: 12/28/18 13:18 Fentanyl (Sublimaze) 50 mcg IVPUSH ONETIME ONE Stop: 12/27/18 07:49 Last Admin: 12/27/18 08:04 Dose: 50 mcg Fentanyl (Sublimaze) 50 mcg IVPUSH Q1H PRN PRN Reason: Pain (moderate 4-6) Last Admin: 12/27/18 15:41 Dose: 50 mcg Fentanyl (Sublimaze) Confirm Administered Dose 100 mcg .ROUTE .STK-MED ONE Stop: 12/27/18 17:50 Last Admin: 12/27/18 19:13 Dose: Not Given Fentanyl (Sublimaze) 30 mcg ITHECAL .STK-MED ONE Stop: 12/28/18 13:18 Lactated Ringer's (Ringers, Lactated) 1,000 mls @ 999 mls/hr IV .BOLUS ONE Stop: 12/27/18 07:15 Last Admin: 12/27/18 06:25 Dose: 999 mls/hr Lactated Ringer's (Ringers, Lactated) 500 mls @ 999 mls/hr IV .BOLUS ONE Stop: 12/27/18 09:30 Last Admin: 12/28/18 05:47 Dose: Not Given Lactated Ringer's (Ringers, Lactated) 1,000 mls @ 125 mls/hr IV ASDIRECTED REJI Last Admin: 12/27/18 19:19 Dose: 125 mls/hr Tranexamic Acid 1,000 mg/ (Sodium Chloride) 110 mls @ 660 mls/hr IV ONETIME PRN PRN Reason: Bleeding Ibuprofen (Motrin) 800 mg PO Q8H PRN PRN Reason: Pain (mild 1-3) Last Admin: 12/28/18 02:30 Dose: 800 mg Lidocaine HCl (Xylocaine-Mpf 1%) 30 ml INJECT ASDIRECTED PRN PRN Reason: Perineal Repair Last Admin: 12/27/18 22:28 Dose: 30 ml Lidocaine HCl (Xylocaine 2%) 3 ml .XX .STK-MED ONE Stop: 12/28/18 13:18 Misoprostol (Cytotec) 800 mcg RECTAL ASDIRECTED PRN PRN Reason: Hemorrhage Nalbuphine HCl (Nubain) 20 mg IM Q3H PRN PRN Reason: Pain Last Admin: 12/27/18 12:52 Dose: 20 mg Sodium Chloride (Saline Flush) 10 ml FLUSH ASDIRECTED PRN PRN Reason: Keep Vein Open Sufentanil Citrate (Sufenta) Confirm Administered Dose 50 mcg .ROUTE .STK-MED ONE Stop: 12/27/18 17:50 Last Admin: 12/27/18 19:14 Dose: Not Given Sufentanil Citrate (Sufenta) 25 mcg ITHECAL .STK-MED ONE Stop: 12/28/18 13:18 - Infant Interaction Infant Interaction: Holding Infant Infant Feeding: Breastfed Infant; Nursed Well Support Person: Significant Other - Recovery Exam Fundal Tone: Firm Fundal Level: 2 Fingerbreadths Below Umbilicus Fundal Placement: Midline Lochia Amount: Small Lochia Color: Rubra/Red Perineum Description: Intact, Minimal Bruising/Swelling Bladder Status: Nonpalpable, Voiding - Exam General: Alert, Oriented, Cooperative, No Acute Distress HEENT: Pupils Equal, Pupils Reactive, EOMI, Mucous Membr. Moist/[place] Neck: Supple Lungs: Clear to Auscultation, Normal Respiratory Effort Cardiovascular: Regular Rate, Regular Rhythm GI/Abdominal Exam: Normal Bowel Sounds, Soft, Non-Tender, No Distention Extremities: Normal Inspection, Normal Range of Motion, Non-Tender, No Pedal Edema Skin: Warm, Dry, Intact Neurological: No New Focal Deficit Psy/Mental Status: Alert, Normal Affect, Normal Mood - Problem List Review Problem List Initiated/Reviewed/Updated: Yes - Assessment Assessment:: PPD # 2 S/P Doing well - Plan Plan:: 1. Discharge to home 2. Follow-up with Dr. Carroll at recheck. 3. Ibuprofen/Tylenol for pain control. 4. All questions answered.
--- NOTE | 2018-12-29 11:46 | DISCH ---
INDICATION FOR ADMISSION: Ms. Pack is a 38-year-old, 1, para 0 female at 39 and 6/7 weeks' gestation, who reported to Labor and delivery at with contractions, they are every 3-4 minutes apart. She was having regular contractions and since she was in labor, she did get admitted. On admission, she was noted to be closed, 90%, -2 station. She did have augmentation with Pitocin once she got to complete, she started pushing, and she had a normal spontaneous vaginal delivery of a viable female infant, weighing 8 pounds 7 ounces with scores of 9 at one minute and 7 at five minute. There was a loose nuchal cord that was reduced after delivery. She had a small right labial laceration that was repaired with 4-0 Vicryl suture. The infant went to the nursery and the patient recovered. She tolerated the rest of her hospital stay quite well. She was afebrile. Vital signs were stable. She tolerated her diet well and ambulated quite well. No complications occurred with the patient at tx. She was ready for discharge on day #2. Her did have a pneumothorax and improved daily throughout the hospitalization. LABORATORY AND DIAGNOSTIC STUDIES: On 12/27/2018, WBC 9.8, hemoglobin 12.1, hematocrit 35.9, platelet count of 153,000. Random protein-creatinine ratio of 0.13. On 12/29/2018, WBC 11.3, hemoglobin 10.5, hematocrit 32.0, platelet count 144,000. DISCHARGE INSTRUCTIONS: 1. Discharge to home. 2. Follow up with Dr. Carroll next week or sooner if problems develop. 3. No douching, tampons, or intercourse for 6 weeks. 4. Discharge instructions including activity, followup, medications, diet, and wound care were discussed with the patient. She understands these and is willing to comply with these. 5. Ibuprofen p.r.n. for discomfort. 6. Tylenol p.r.n. for discomfort. DISCHARGE DIAGNOSES: 1. A 38-year-old 1, para 0 female at 39-6/7 weeks' gestation. 2. Early labor. 3. Pitocin augmentation. 4. Artificial rupture of membranes. 5. Normal spontaneous vaginal delivery of a viable female weighing 8 pounds 7 ounces with scores of 9 at one minute, 7 at five minutes. 6. Loose nuchal cord x1. 7. First degree right labial laceration, repaired with 4-0 Vicryl suture. 8. Infant with pneumothorax. 9. Acute anemia secondary to blood loss. [facility] /[id number] MTDD
== END 2018-12-29 22:47 | disposition home or self-care (01) | DRG 806 ==
LOC: DL.OBCHECK 05:35 → DL.OB 08:48 → UNDOADMIN 08:48 → DL.OB 10:15 → UNDOADMIN 10:15 → DL.OB 22:14
PROVIDERS: ADMIT Family Medicine; ATTEND Family Medicine
PROC: 10E0XZZ Delivery of Products of Conception, External Approach (ICD-10-PCS; principal; 2018-12-27)
PROC: 10907ZC Drainage of Amniotic Fluid, Therapeutic from Products of Conception, Via Natural or Artificial Opening (ICD-10-PCS; 2018-12-27)
PROC: 0HQ9XZZ Repair Perineum Skin, External Approach (ICD-10-PCS; 2018-12-27)
PROC: 3E0R3BZ Introduction of Anesthetic Agent into Spinal Canal, Percutaneous Approach (ICD-10-PCS; 2018-12-27)
DX: O99.344 Other mental disorders complicating childbirth (principal); D62 Acute posthemorrhagic anemia; Z37.0 Single live birth; O69.81X0 Labor and delivery complicated by cord around neck, without compression, not applicable or unspecified; O70.0 First degree perineal laceration during delivery; F41.9 Anxiety disorder, unspecified; F32.9 Major depressive disorder, single episode, unspecified; O99.03 Anemia complicating the puerperium; Z87.891 Personal history of nicotine dependence; Z3A.39 39 weeks gestation of pregnancy
CPT/HCPCS: 01967; 36415; 59409; 76815; 82570; 84156; 85027; A9270-GY; J0171; J2001; J2300; J2590; J3010; J7120

== ENCOUNTER 2019-01-03 04:37 | Emergency (ER) | payer OTHER ==
[2019-01-03 04:46] VITALS: BP 136/85
[2019-01-03] MEDS ORDERED: Sodium Chloride 0.9% 1,000 ML IV ONE (04:48)
[2019-01-03 05:33] LABS: ANION GAP 15.8; CHLORIDE,CL 106 mmol/L (101-111); SODIUM,NA 137 mmol/L (135-145)
--- NOTE | 2019-01-03 05:37 | EDM.PDOC ---
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 Max temp 102 one hour prior to coming to ER. Activity level low. Has been to baby check up on Monday then mostly at home. Patient is 7 days , vaginal delivery with 1st degree tear. EBL 225ml during delivery. Bottle feeding. Reports Group B negative. No headache, no nausea or vomiting. menstrual type cramping and low back discomfort. Bowels per usual. Some discomfort with urination and increased frequency. Lower Back Pain Score (Numeric/FACES): 4 - Related Data Allergies Allergy/AdvReac Type Severity Reaction Status Date / Time azithromycin Allergy Cannot Verified 01/03/19 04:47 Remember bermuda grass Allergy Cannot Uncoded 12/27/18 05:38 Remember penicillin mold Allergy Cannot Uncoded 12/27/18 05:38 Remember Home Meds: Home Meds FLUoxetine [PROzac] 20 mg PO DAILY 09/28/15 [History] PNV95/Ferrous Fumarate/FA [Prenavite Tablet] 1 each PO DAILY 12/18/18 [History] Past Medical History - Past Health History Medical/Surgical History: Denies Medical/Surgical History HEENT History: Reports: None Cardiovascular History: Reports: None Respiratory History: Reports: None Gastrointestinal History: Reports: Irritable Bowel Syndrome Genitourinary History: Reports: None 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 Musculoskeletal History: Reports: Other (See Below) 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 Neurological History: Reports: None Psychiatric History: Reports: Anxiety, Depression Endocrine/Metabolic History: Reports: None Hematologic History: Reports: None Immunologic History: Reports: None Oncologic (Cancer) History: Reports: Cervix Dermatologic History: Reports: None - Infectious Disease History Infectious Disease History: Reports: Chicken Pox, Measles - Past Surgical History Head Surgeries/Procedures: Reports: None Female Surgical History: Reports: Cervical Conization Social & Family History - Family History Family Medical History: Noncontributory - Tobacco Use Smoking Status *Q: Never Smoker - Caffeine Use Caffeine Use: Reports: Soda - Recreational Drug Use Recreational Drug Use: No - Living Situation & Occupation Living situation: Reports: Single, Alone Occupation: Employed ED ROS GENERAL - Review of Systems Review Of Systems: ROS reveals no pertinent complaints other than HPI. ED EXAM, RENAL/ - Physical Exam Exam: See Below Exam Limited By: No Limitations General Appearance: Alert, Anxious, Mild Distress Eye Exam: Bilateral Eye: EOMI Ears: Normal External Exam Nose: Normal Inspection Throat/Mouth: Normal Inspection Head: Atraumatic, Normocephalic Neck: Normal Inspection Respiratory/Chest: No Respiratory Distress, Lungs Clear, Normal Breath Sounds Cardiovascular: Normal Peripheral Pulses, Regular Rate, Rhythm GI/Abdominal: Normal Bowel Sounds, Soft, Tender (suproapubic) (Female) Exam: Vaginal Bleeding (dark no clots or odor), Other (laceration right inner labia) Extremities: Normal Inspection Neurological: Alert, Oriented, Normal Cognition Psychiatric: Normal Affect, Normal Mood Skin Exam: Warm, Dry, Intact, Other (cheeks red dry) Course - Vital Signs Last Recorded V/S: Last Vital Signs Temp 99.6 F 01/03/19 06:01 Pulse 128 H 01/03/19 04:41 Resp 19 01/03/19 04:41 BP 136/85 01/03/19 04:41 Pulse Ox 98 01/03/19 04:41 Orthostatic Blood Pressure [ 136/79 Standing] Orthostatic Blood Pressure [ 130/83 Sitting] Orthostatic Blood Pressure [ 140/80 Supine] - Orders/Labs/Meds Orders: Active Orders 24 hr Category Date Time Status CULTURE BLOOD [BC] Stat Lab 01/03/19 04:50 Received CULTURE BLOOD [BC] Stat Lab 01/03/19 04:54 Received CULTURE GENITAL [RM] Stat Lab 01/03/19 05:13 Received Blood Culture x2 Reflex Set [OM.PC] Stat Oth 01/03/19 04:44 Ordered Labs: Laboratory Tests 01/03/19 01/03/19 01/03/19 Range/Units 04:54 04:54 04:54 WBC 14.5 H (5.0-10.0) 10^3/uL RBC 3.62 L (4.2-5.4) 10^6/uL Hgb 11.3 L (12.0-16.0) g/dL Hct 34.5 L (37.0-47.0) % MCV 95.3 (80-100) fL MCH 31.2 (27.0-34.0) pg MCHC 32.8 L (33.0-35.0) g/dL Plt Count 265 D (150-450) 10^3/uL Neut % (Auto) 85.7 H (42.2-75.2) % Lymph % (Auto) 7.9 L (20.5-50.1) % [place] % (Auto) 5.2 (2-8) % Eos % (Auto) 1.1 (1.0-3.0) % Baso % (Auto) 0.1 (0.0-1.0) % PT 9.2 (9.0-12.0) SEC INR 0.9 (0.9-1.2) Sodium 137 (135-145) mmol/L Potassium 3.8 (3.6-5.0) mmol/L Chloride 106 (101-111) mmol/L Carbon Dioxide 19.0 L (21.0-31.0) mmol/L Anion Gap 15.8 BUN 14 (7-18) mg/dL Creatinine 0.8 (0.6-1.3) mg/dL Est Cr Clr Drug Dosing 105.13 mL/min Estimated GFR (MDRD) > 60 BUN/Creatinine Ratio 17.50 Glucose 109 H (74-105) mg/dL Lactic Acid (0.5-2.2) mmol/L Calcium 8.4 (8.4-10.2) mg/dl Magnesium 1.6 L (1.8-2.5) mg/dL Total Bilirubin 0.3 (0.2-1.0) mg/dL AST 58 H (10-42) IU/L ALT 70 H (10-60) IU/L Alkaline Phosphatase 96 (42-121) IU/L Total Protein 6.9 (6.7-8.2) g/dl Albumin 3.1 L (3.2-5.5) g/dl Globulin 3.8 Albumin/Globulin Ratio 0.82 Urine Color (YELLOW) Urine Appearance (CLEAR) Urine pH (5.0-9.0) Ur Specific [place] (1.005-1.030) Urine Protein (NEGATIVE) Urine Glucose (UA) (NEGATIVE) Urine Ketones (NEGATIVE) Urine Occult Blood (NEGATIVE) Urine Nitrite (NEGATIVE) Urine Bilirubin (NEGATIVE) Urine Urobilinogen (0.2-1.0) mg/dL Ur Leukocyte Esterase (NEGATIVE) Urine RBC /HPF Urine WBC (0-5/HPF) /HPF Ur Epithelial Cells /HPF Urine Bacteria (0-FEW/HPF) /HPF Urine Mucus /LPF Urinalysis Comment 01/03/19 01/03/19 Range/Units 04:54 05:18 WBC (5.0-10.0) 10^3/uL RBC (4.2-5.4) 10^6/uL Hgb (12.0-16.0) g/dL Hct (37.0-47.0) % MCV (80-100) fL MCH (27.0-34.0) pg MCHC (33.0-35.0) g/dL Plt Count (150-450) 10^3/uL Neut % (Auto) (42.2-75.2) % Lymph % (Auto) (20.5-50.1) % [place] % (Auto) (2-8) % Eos % (Auto) (1.0-3.0) % Baso % (Auto) (0.0-1.0) % PT (9.0-12.0) SEC INR (0.9-1.2) Sodium (135-145) mmol/L Potassium (3.6-5.0) mmol/L Chloride (101-111) mmol/L Carbon Dioxide (21.0-31.0) mmol/L Anion Gap BUN (7-18) mg/dL Creatinine (0.6-1.3) mg/dL Est Cr Clr Drug Dosing mL/min Estimated GFR (MDRD) BUN/Creatinine Ratio Glucose (74-105) mg/dL Lactic Acid 1.3 (0.5-2.2) mmol/L Calcium (8.4-10.2) mg/dl Magnesium (1.8-2.5) mg/dL Total Bilirubin (0.2-1.0) mg/dL AST (10-42) IU/L ALT (10-60) IU/L Alkaline Phosphatase (42-121) IU/L Total Protein (6.7-8.2) g/dl Albumin (3.2-5.5) g/dl Globulin Albumin/Globulin Ratio Urine Color Yellow (YELLOW) Urine Appearance Clear (CLEAR) Urine pH 6.5 (5.0-9.0) Ur Specific [place] 1.015 (1.005-1.030) Urine Protein 30 H (NEGATIVE) Urine Glucose (UA) Negative (NEGATIVE) Urine Ketones Trace H (NEGATIVE) Urine Occult Blood Trace-lysed H (NEGATIVE) Urine Nitrite Negative (NEGATIVE) Urine Bilirubin Negative (NEGATIVE) Urine Urobilinogen 0.2 (0.2-1.0) mg/dL Ur Leukocyte Esterase Negative (NEGATIVE) Urine RBC 0-5 /HPF Urine WBC 0-5 (0-5/HPF) /HPF Ur Epithelial Cells Few /HPF Urine Bacteria Few (0-FEW/HPF) /HPF Urine Mucus Moderate H /LPF Urinalysis Comment Meds: Medications Discontinued Medications Generic Name Dose Route Start Last Admin Trade Name Freq PRN Reason Stop Dose Admin Clindamycin HCl 300 mg 01/03/19 06:22 01/03/19 06:28 Cleocin PO 01/03/19 06:23 300 mg ONETIME ONE Administration Sodium Chloride 1,000 mls @ 999 mls/hr 01/03/19 04:48 01/03/19 05:05 Normal Saline IV 01/03/19 05:48 999 mls/hr .BOLUS ONE Administration Departure - Departure Time of Disposition: 06:29 Disposition: Home, Self-Care 01 Condition: Good Clinical Impression: fever, Mastitis - Discharge Information *PRESCRIPTION DRUG MONITORING PROGRAM REVIEWED*: Not Applicable *COPY OF PRESCRIPTION DRUG MONITORING REPORT IN PATIENT TATE: Not Applicable Instructions: Mastitis, [id number] Forms: ED Department Discharge Additional Instructions: light activity increase fluid intake warm pack 4 times daily for 15minutes to right breast follow up appointment with Dr Carroll later today or Monday Clindamycin 300mg 3 times daily for 7 days Urgent follow up, if increased fever, dizziness, vomiting, or increased cramping or abdominal pain - My Orders Last 24 Hours: My Active Orders 01/03/19 04:44 Blood Culture x2 Reflex Set [OM.PC] Stat 01/03/19 04:50 CULTURE BLOOD [BC] Stat 01/03/19 04:54 CULTURE BLOOD [BC] Stat 01/03/19 05:13 CULTURE GENITAL [RM] Stat - Assessment/Plan Last 24 Hours: My Active Orders 01/03/19 04:44 Blood Culture x2 Reflex Set [OM.PC] Stat 01/03/19 04:50 CULTURE BLOOD [BC] Stat 01/03/19 04:54 CULTURE BLOOD [BC] Stat 01/03/19 05:13 CULTURE GENITAL [RM] Stat
[2019-01-03] MEDS ORDERED: Clindamycin HCl 150 MG Cap PO ONE (06:22)
== END 2019-01-03 06:35 | disposition home or self-care (01) ==
LOC: DL.ED 04:37
DX: O91.22 Nonpurulent mastitis associated with the puerperium (principal); O86.4 Pyrexia of unknown origin following delivery; O99.345 Other mental disorders complicating the puerperium; F41.9 Anxiety disorder, unspecified; F32.9 Major depressive disorder, single episode, unspecified; Z88.1 Allergy status to other antibiotic agents; Z88.0 Allergy status to penicillin; Z79.899 Other long term (current) drug therapy
CPT/HCPCS: 36415; 80053; 81001; 83605; 83735; 85025; 85610; 87040; 87070; 87077; 87210; 96365; 99283-25; A9270-GY; J7030

== ENCOUNTER 2021-07-11 00:43 | Emergency (ER) | payer OTHER ==
[2021-07-11 01:05] VITALS: BP 116/81; PULSE 80
[2021-07-11 01:32] LABS: ANION GAP 14.3 mEq/L (7-13); CHLORIDE,CL 102 mmol/L (98-107); SODIUM,NA 140 mmol/L (136-145)
[2021-07-11] MEDS ORDERED: Ondansetron 4 MG/2 ML SDV IVPUSH ONE (01:58)
[2021-07-11] MEDS ORDERED: fentaNYL 100 MCG/2 ML SDV IVPUSH ONE (01:58)
--- NOTE | 2021-07-11 02:24 | US ---
PROCEDURE INFORMATION: Exam: US , Limited Exam date and time: 07/11/2021 1:33 AM Age: 40 years old Clinical indication: complicated by abdominal or pelvic pain; Right lower quadrant; First trimester (<14 weeks 0 days); Gestational age or lmp: 4 w 4 d; ; Additional info: Rlq, pelvic pain TECHNIQUE: Imaging protocol: Real-time ultrasound of the maternal uterus with image documentation. Exam focused on the clinical indication. COMPARISON: No relevant prior studies available. FINDINGS: Gestation: There is a small gestational sac suggested in the uterine fundal endometrial cavity measuring 4 x 2 mm. There is no yolk sac. No pole. MATERNAL: Uterus: Endometrial thickness 5 mm. Uterus is unremarkable in size and contour. Right adnexa: Right ovary measuring 4.5 x 4.0 cm. There is prominent slightly hyperechoic Radha adnexal fluid on the right side. Cannot exclude a ruptured ectopic . Left adnexa: Left ovary is not visible. No left adnexal fluid. Intraperitoneal space: There is free fluid in the cul-de-sac. IMPRESSION: 1. Small empty gestational sac in the uterine fundus without decidual reaction. This could represent a pseudo sac. No yolk sac or pole. Sac diameter is approximately 4 x 2 mm. 2. Right adnexal soft tissue fullness and Radha adnexal slightly hyperechoic fluid. Cannot exclude a ruptured right ectopic with hemorrhagic fluid. 3. Nonvisualization of the left ovary.
[2021-07-11] MEDS ORDERED: Sodium Chloride 0.9% 1,000 ML IV ONE (02:58)
[2021-07-11] MEDS ORDERED: Potassium Chloride 10 MEQ in Premix Bag 1 BAG IV ONE (02:58)
--- NOTE | 2021-07-11 03:08 | EDM.PDOC ---
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 Possible ectopic . Hcg quants being monitored. last week 1200. LMP 06/09. Last US last week unable to determine intrauterine . Has had intermittent spotting this month. Grape size clots tonight. full pad but not complete saturation in 2 hours. Pain 03/27 - Related Data Allergies Allergy/AdvReac Type Severity Reaction Status Date / Time azithromycin Allergy Cannot Verified 01/03/19 04:47 Remember bermuda grass Allergy Cannot Uncoded 12/27/18 05:38 Remember penicillin mold Allergy Cannot Uncoded 12/27/18 05:38 Remember Home Meds: Home Meds FLUoxetine [PROzac] 20 mg PO DAILY 09/28/15 [History] Pnv No.95/Ferrous Fum/Folic AC [Prenavite Tablet] 1 each PO DAILY 12/18/18 [History] Past Medical History - Past Health History Medical/Surgical History: Denies Medical/Surgical History HEENT History: Reports: None Cardiovascular History: Reports: None Respiratory History: Reports: None Gastrointestinal History: Reports: Irritable Bowel Syndrome Genitourinary History: Reports: None 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: , 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 Musculoskeletal History: Reports: Other (See Below) 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 Neurological History: Reports: None Psychiatric History: Reports: Anxiety, Depression Endocrine/Metabolic History: Reports: None Hematologic History: Reports: None Immunologic History: Reports: None Oncologic (Cancer) History: Reports: Cervix Dermatologic History: Reports: None - Infectious Disease History Infectious Disease History: Reports: Chicken Pox, Measles - Past Surgical History Head Surgeries/Procedures: Reports: None GI Surgical History: Reports: Colonoscopy, EGD Female Surgical History: Reports: Cervical Conization Social & Family History - Family History Family Medical History: No Pertinent Family History - Tobacco Use Tobacco Use Status *Q: Never Tobacco User - Caffeine Use Caffeine Use: Reports: None - Recreational Drug Use Recreational Drug Use: No - Living Situation & Occupation Living situation: Reports: Single, Alone Occupation: Employed ED ROS GENERAL - Review of Systems Review Of Systems: Comprehensive ROS is negative, except as noted in HPI. ED EXAM - Physical Exam Exam: See Below Exam Limited By: No Limitations General Appearance: Alert, Anxious, Mild Distress Eye Exam: Bilateral Eye: EOMI Ears: Normal External Exam Throat/Mouth: Normal Inspection Head: Atraumatic, Normocephalic Neck: Normal Inspection Cardiovascular: Normal Peripheral Pulses, Regular Rate, Rhythm GI/Abdominal Exam: Soft, No Distention, Tender (mild mid lower, distal RLQ), Abnormal Bowel Sounds (decreased) (Female) Exam: Other (small amount dark blood with small clots in vaginal vault, cervix not visulaized) Extremities: Normal Inspection Neurological: Alert, Oriented, Normal Cognition Psychiatric: Normal Affect, Anxious Skin Exam: Warm, Dry, Intact, Normal Color Course - Vital Signs Last Recorded V/S: Last Vital Signs Temp 97 F 07/11/21 00:58 Pulse 80 07/11/21 00:58 Resp 16 07/11/21 00:58 BP 116/81 07/11/21 00:58 Pulse Ox 98 07/11/21 00:58 - Orders/Labs/Meds Orders: Active Orders 24 hr Category Date Time Status OB Transvaginal [US] Urgent Exams 07/11/21 01:56 Taken UA RFX NADIA AND CULT IF INDIC [URIN] Urgent Lab 07/11/21 00:51 Ordered Labs: Laboratory Tests 07/11/21 07/11/21 07/11/21 Range/Units 01:00 01:00 01:00 WBC 7.5 (5.0-10.0) 10^3/uL RBC 3.77 L (4.2-5.4) 10^6/uL Hgb 11.6 L (12.0-16.0) g/dL Hct 35.2 L (37.0-47.0) % MCV 93.4 (80-100) fL MCH 30.8 (27.0-34.0) pg MCHC 33.0 (33.0-35.0) g/dL Plt Count 256 (150-450) 10^3/uL Neut % (Auto) 50.7 (42.2-75.2) % Lymph % (Auto) 42.4 (20.5-50.1) % [place] % (Auto) 5.7 (2-8) % Eos % (Auto) 0.9 L (1.0-3.0) % Baso % (Auto) 0.3 (0.0-1.0) % Sodium 140 (136-145) mmol/L Potassium 3.3 L (3.5-5.1) mmol/L Chloride 102 (98-107) mmol/L Carbon Dioxide 27 (21-32) mmol/L Anion Gap 14.3 H (7-13) mEq/L BUN 14 (7-18) mg/dL Creatinine 1.00 (0.55-1.02) mg/dL Est Cr Clr Drug Dosing 71.41 mL/min Estimated GFR (MDRD) > 60 BUN/Creatinine Ratio 14.0 (No establ ref range) Glucose 110 H (70-99) mg/dL Calcium 8.4 L (8.5-10.1) mg/dL Total Bilirubin 0.2 (0.2-1.0) mg/dL AST 17 (15-37) U/L ALT 21 (14-59) U/L Alkaline Phosphatase 50 (46-116) U/L Total Protein 7.0 (6.4-8.2) g/dL Albumin 3.4 (3.4-5.0) g/dL Globulin 3.6 Albumin/Globulin Ratio 0.9 HCG, Quant 833 H (0-6) mIU/mL Blood Type 07/11/21 07/11/21 Range/Units 01:00 03:05 WBC (5.0-10.0) 10^3/uL RBC (4.2-5.4) 10^6/uL Hgb 11.6 L (12.0-16.0) g/dL Hct 35.3 L (37.0-47.0) % MCV (80-100) fL MCH (27.0-34.0) pg MCHC (33.0-35.0) g/dL Plt Count (150-450) 10^3/uL Neut % (Auto) (42.2-75.2) % Lymph % (Auto) (20.5-50.1) % [place] % (Auto) (2-8) % Eos % (Auto) (1.0-3.0) % Baso % (Auto) (0.0-1.0) % Sodium (136-145) mmol/L Potassium (3.5-5.1) mmol/L Chloride (98-107) mmol/L Carbon Dioxide (21-32) mmol/L Anion Gap (7-13) mEq/L BUN (7-18) mg/dL Creatinine (0.55-1.02) mg/dL Est Cr Clr Drug Dosing mL/min Estimated GFR (MDRD) BUN/Creatinine Ratio (No establ ref range) Glucose (70-99) mg/dL Calcium (8.5-10.1) mg/dL Total Bilirubin (0.2-1.0) mg/dL AST (15-37) U/L ALT (14-59) U/L Alkaline Phosphatase (46-116) U/L Total Protein (6.4-8.2) g/dL Albumin (3.4-5.0) g/dL Globulin Albumin/Globulin Ratio HCG, Quant (0-6) mIU/mL Blood Type B POSITIVE Meds: Medications Discontinued Medications Generic Name Dose Route Start Last Admin Trade Name Freq PRN Reason Stop Dose Admin Fentanyl 50 mcg 07/11/21 01:58 07/11/21 03:05 Fentanyl 100 Mcg/2 Ml Sdv IVPUSH 07/11/21 01:59 50 mcg ONETIME ONE Administration Protocol Potassium Chloride 10 meq/ 100 mls @ 100 mls/hr 07/11/21 02:58 07/11/21 03:10 Premix IV 07/11/21 03:57 100 mls/hr ONETIME ONE Administration Sodium Chloride 1,000 mls @ 250 mls/hr 07/11/21 02:58 07/11/21 03:04 Normal Saline IV 07/11/21 06:57 250 mls/hr .BOLUS ONE Administration Ondansetron HCl 4 mg 07/11/21 01:58 07/11/21 03:08 Ondansetron 4 Mg/2 Ml Sdv IVPUSH 07/11/21 01:59 4 mg ONETIME ONE Administration - Re-Assessments/Exams Free Text/Narrative Re-Assessment/Exam: 07/11/21 03:[address] Michael Newberry, EMAIL PRODUCTION CONSULTANT [facility] accepting patient for further eval and management. Tx via [facility]. No local transport available. VS stable. Minimal discomfort at present, currently declining pain medication. 07/11/21 04:21 VSS stable. Up to BR standby assist. gait steady. No gross bleeding. Departure - Departure Time of Disposition: 04:05 Disposition: DC/Tfer to Acute Hospital 02 Condition: Good Clinical Impression: Ruptured ectopic , Hypokalemia - Discharge Information *PRESCRIPTION DRUG MONITORING PROGRAM REVIEWED*: No *COPY OF PRESCRIPTION DRUG MONITORING REPORT IN PATIENT TATE: No Forms: ED Department Discharge Sepsis Event Note (ED) - Evaluation Sepsis Screening Result: No Definite Risk - Focused Exam Vital Signs: Vital Signs Temp Pulse Resp BP Pulse Ox 07/11/21 00:58 97 F 80 16 116/81 98 - My Orders Last 24 Hours: My Active Orders 07/11/21 00:51 UA RFX NADIA AND CULT IF INDIC [URIN] Urgent 07/11/21 01:56 OB Transvaginal [US] Urgent - Assessment/Plan Last 24 Hours: My Active Orders 07/11/21 00:51 UA RFX NADIA AND CULT IF INDIC [URIN] Urgent 07/11/21 01:56 OB Transvaginal [US] Urgent
--- NOTE | 2021-07-12 10:51 | US ---
EXAMINATION: OB Transvaginal SEX: Female AGE: 40 years CLINICAL HISTORY: 40-year-old "gravid" female with RLQ abdominal pain and vaginal bleeding. LMP 20 Sept. 2020. INTERPRETATION: Abnormal. Suspicious for possible ectopic . Close clinical and laboratory correlation. 1. Mildly enlarged midline uterus with small collection of fluid (gestational sac?) fundus of the endometrial canal. 2. Otherwise normal endometrial "stripe" (5.54 mm diameter). No myometrial fibroid mass lesion. 3. No intrauterine pole or heartbeat. 4. *Right adnexal mass with surrounding fluid in the RLQ adnexal region. Serum hCG? Ectopic ? 5. Left ovary not defined or identified. Left adnexa unremarkable.
== END 2021-07-11 04:07 ==
LOC: DL.ED 00:43
DX: O00.90 Unspecified ectopic pregnancy without intrauterine pregnancy (principal); E87.6 Hypokalemia; Z88.1 Allergy status to other antibiotic agents; Z91.09 Other allergy status, other than to drugs and biological substances; Z88.0 Allergy status to penicillin
CPT/HCPCS: 36415; 76815; 76817; 80053; 84702; 85014; 85018; 85025; 86900; 86901; 96365; 96375; 99285; J2405; J3010; J3480; J7030

== ENCOUNTER 2022-07-07 01:20 | Inpatient (IN) | payer OTHER ==
[2022-07-07] MEDS ORDERED: Sodium Chloride 0.9% 100 ML ONE (01:50)
[2022-07-07] MEDS ORDERED: Oxytocin/Normal Saline 60 UNIT/1,000 ML BAG ONE (02:05)
[2022-07-07] MEDS ORDERED: fentaNYL 100 MCG/2 ML SDV ONE (02:36)
[2022-07-07] MEDS ORDERED: Morphine PF 1 MG/ML Amp ONE (02:36)
[2022-07-07] MEDS ORDERED: Hetastarch in NS 500 ML ONE ×2 (03:03→03:48)
[2022-07-07] MEDS ORDERED: Oxytocin/Normal Saline 30 UNIT/500 ML BAG ONE (03:27)
[2022-07-07] MEDS ORDERED: Rocuronium 100 MG/10 ML MDV ONE (04:59)
[2022-07-07] MEDS ORDERED: Methylergonovine 0.2 MG/1 ML Amp IM PRN (05:00)
[2022-07-07] MEDS ORDERED: Ketorolac 30 MG/ML SDV IVPUSH SCH (05:00)
[2022-07-07] MEDS ORDERED: Lactated Ringers 1,000 ML IV SCH (05:00)
[2022-07-07] MEDS ORDERED: Carboprost Tromethamine 250 MCG/1 ML Amp IM PRN (05:00)
[2022-07-07] MEDS ORDERED: Ibuprofen 800 MG Tab PO PRN (05:00)
[2022-07-07] MEDS ORDERED: ePHEDrine 50 MG/ML SDV IVPUSH PRN (05:00)
[2022-07-07] MEDS ORDERED: Naloxone 2 MG/2 ML Syringe IVPUSH PRN (05:00)
[2022-07-07] MEDS ORDERED: Misoprostol 400 MCG (4 X 100 MCG TAB) RECTAL PRN (05:00)
[2022-07-07] MEDS ORDERED: diphenhydrAMINE 50 MG/ML SDV IVPUSH PRN (05:00)
[2022-07-07] MEDS ORDERED: Docusate Sodium 100 MG Cap PO PRN (05:00)
[2022-07-07] MEDS ORDERED: Acetaminophen/oxyCODONE 325-5 MG Tab PO PRN ×2 (05:00)
[2022-07-07] MEDS ORDERED: Acetaminophen 325 MG Tab PO PRN (05:00)
[2022-07-07] MEDS ORDERED: Ondansetron 4 MG/2 ML SDV IVPUSH PRN (05:00)
[2022-07-07] MEDS ORDERED: Tranexamic Acid 1,000 MG in Sodium Chloride 0.9% 100 ML IV PRN (05:00)
[2022-07-07 06:10] LABS: PTT,PARTIAL THROMBOPLSTIN TIME 59.4 SEC (22.0-34.0)
[2022-07-07] MEDS ORDERED: Methylergonovine 0.2 MG/1 ML Amp ONE (06:33)
[2022-07-07 07:57] LABS: ANION GAP 19.3 mEq/L (7-13); CHLORIDE,CL 119 mmol/L (98-107); SODIUM,NA 144 mmol/L (136-145)
[2022-07-07] MEDS ORDERED: Simethicone 80 MG Tab.Chew PO SCH (09:00)
[2022-07-07] MEDS ORDERED: Prenatal Multivitamin with Calcium/Folic Acid/Iron Tab PO SCH (09:00)
[2022-07-07 18:42] VITALS: PULSE 84
[2022-07-07 18:43] VITALS: BP 99/67
== END 2022-07-07 05:25 | DRG 786 ==
LOC: DL.OB 01:20 → UNDOADMIN 01:41 → DL.OB 12:21 → UNDOADMIN 12:21
PROVIDERS: ADMIT Family Medicine; ATTEND Family Medicine
PROC: 10D00Z1 Extraction of Products of Conception, Low, Open Approach (ICD-10-PCS; principal; 2022-07-07)
PROC: 30233N1 Transfusion of Nonautologous Red Blood Cells into Peripheral Vein, Percutaneous Approach (ICD-10-PCS; 2022-07-07)
DX: O44.03 Complete placenta previa NOS or without hemorrhage, third trimester (principal); O75.1 Shock during or following labor and delivery; Z3A.35 35 weeks gestation of pregnancy; Z37.0 Single live birth; Z20.822 Contact with and (suspected) exposure to COVID-19
CPT/HCPCS: 36415; 36430; 51702; 71045; 80048; 85025; 85027; 85384; 85610; 85730; 86850; 86900; 86901; 86920; 86922; P9016; P9017; U0002

== ENCOUNTER 2024-08-12 11:53 | Emergency (ER) | payer OTHER ==
[2024-08-12] MEDS ORDERED: Sodium Chloride 0.9% 10 ML Syringe FLUSH PRN (12:03)
[2024-08-12 12:16] LABS: BASOPHILS PERCENT AUTO 0.1 % (0.0-1.0); EOSINOPHILS PERCENT AUTO 1.7 % (1.0-3.0); HEMOGLOBIN 13.3 g/dL (12.0-16.0); LYMPHOCYTES PERCENT AUTO 38.8 % (20.5-50.1); MEAN CORPUSCULAR HEMOGLOBIN 29.8 pg (27.0-34.0); MEAN CORPUSCULAR HGB CONC 33.3 g/dL (33.0-35.0); MEAN CORPUSCULAR VOLUME 89.7 fL (80-100); MONOCYTES PERCENT AUTO 6.5 % (2-8); NEUTROPHILS PERCENT AUTO 52.9 % (42.2-75.2); PLATELET COUNT,PLT 229 10^3/uL (150-450); RED BLOOD CELL COUNT 4.46 10^6/uL (4.2-5.4); WHITE BLOOD CELL COUNT,WBC 7.2 10^3/uL (5.0-10.0)
[2024-08-12 12:57] LABS: INR 0.9 (0.9-1.2); PROTHROMBIN TIME 9.8 SEC (9.0-12.0); PTT,PARTIAL THROMBOPLSTIN TIME 25.2 SEC (22.0-34.0)
[2024-08-12 13:02] LABS: A/G RATIO 1.2; ALANINE AMINOTRANSFERASE,ALT 21 U/L (14-59); ALBUMIN 4.2 g/dL (3.4-5.0); ALKALINE PHOSPHATASE 55 U/L (46-116); ANION GAP 13.6 mEq/L (7-13); ASPARTATE AMNIOTRANSFERASE,AST 15 U/L (15-37); BILIRUBIN TOTAL 0.3 mg/dL (0.2-1.0); BLOOD UREA NITROGEN,BUN 14 mg/dL (7-18); BUN/CREATININE RATIO 14.1 (No establ ref range); CALCIUM 9.3 mg/dL (8.5-10.1); CARBON DIOXIDE,CO2 28 mmol/L (21-32); CHLORIDE,CL 99 mmol/L (98-107); CREATININE 0.99 mg/dL (0.55-1.02); EST CRCL DRUG DOSING (CG) 78.15 mL/min; GLUCOSE RANDOM 89 mg/dL (70-99); MAGNESIUM 1.8 mg/dL (1.8-2.4); POTASSIUM,K 3.6 mmol/L (3.5-5.1); PROTEIN TOTAL,TP 7.7 g/dL (6.4-8.2); SODIUM,NA 137 mmol/L (136-145)
[2024-08-12 13:05] LABS: LACTIC ACID 1.6 mmol/L (0.4-2.0)
[2024-08-12 13:06] LABS: C-REACTIVE PROTEIN < 0.50 ng/dL (<=0.50); ESTIMATED GFR 73 mL/min (>=60)
[2024-08-12 13:19] LABS: APPEARANCE,URINE CLEAR (CLEAR); BILIRUBIN,URINE NEGATIVE (NEGATIVE); COLOR,URINE YELLOW (YELLOW); GLUCOSE,URINE NEGATIVE (NEGATIVE); KETONES,URINE NEGATIVE (NEGATIVE); LEUKOCYTE ESTERASE,URINE NEGATIVE (NEGATIVE); NITRITE,URINE NEGATIVE (NEGATIVE); OCCULT BLOOD,URINE SMALL (NEGATIVE); PROTEIN,URINE NEGATIVE (NEGATIVE); UROBILINOGEN,URINE 0.2 mg/dL (0.2-1.0)
[2024-08-12] MEDS: GI Cocktail Oral Solution 30 ML PO ONE (13:27)
[2024-08-12 13:41] LABS: BACTERIA,URINE RARE /HPF (0-FEW/HPF); EPITHELIAL CELLS,URINE RARE /HPF (NOT SEEN); MUCUS,URINE RARE /LPF (NOT SEEN); RBC,URINE 0-5 /HPF (0-5); WBC,URINE NOT SEEN /HPF (0-5/HPF)
[2024-08-12 14:34] VITALS: BP 107/66; PULSE 71
== END 2024-08-12 14:35 | disposition home or self-care (01) ==
LOC: DL.ED 11:53
DX: R07.9 Chest pain, unspecified (principal); Z90.49 Acquired absence of other specified parts of digestive tract; Z88.1 Allergy status to other antibiotic agents; Z91.048 Other nonmedicinal substance allergy status; Z79.899 Other long term (current) drug therapy
CPT/HCPCS: 36415; 71045; 80053; 81001; 83605; 83735; 84145; 84484; 85025; 85610; 85730; 86140; 93005; 99285; A9270